=== PATIENT | female | born 1980 | race Caucasian/White ===

== ENCOUNTER 2018-01-13 19:49 | Emergency (ER) | payer MEDICARE ==
[2018-01-13 20:20] VITALS: BP 130/78
--- NOTE | 2018-01-13 21:10 | UC ---
Ear Complaint HPI - HPI Summary HPI Summary: Patient started today to have left ear pain with popping. Denies chills, fever, nasal d/c, cough, sore throat, vomiting or diarrhea - History of Current Complaint Chief Complaint: UCEar Stated Complaint: BILATERAL EARS,FEVER,NAUSEA,DIZZY Time Seen by Provider: 01/13/18 20:55 Hx Obtained From: Patient Hx Last Menstrual Period: 01/06/18 ?: No Onset/Duration: Sudden Onset Severity Initially: Moderate Severity Currently: Moderate Pain Intensity: 6 Aggravating Factors: Nothing Alleviating Factors: Nothing Associated Signs/Symptoms: Positive: Discharge - orange Related History: Seasonal Allergies - Allergies/Home Medications Allergies/Adverse Reactions: Allergies Allergy/AdvReac Type Severity Reaction Status Date / Time codeine Allergy Hives Verified 01/13/18 20:08 ibuprofen Allergy Hives Verified 01/13/18 20:08 Home Medications: Home Medications ALPRAZolam TAB* [Xanax TAB*] 0.5 mg PO TID PRN 01/13/18 [History Confirmed 01/13] Acetaminophen [Extra Strength Non-Aspirin] 1,000 mg PO Q6H PRN 01/13/18 [ History Confirmed 01/13/18] Doxycycline Calcium [Vibramycin] 50 mg PO DAILY 01/13/18 [History Confirmed ] Hydroxychloroquine TAB* [Plaquenil TAB*] 200 mg PO BID 01/13/18 [History Confirmed 01/13/18] Lisdexamfetamine (NF) [Vyvanse (NF)] 70 mg PO DAILY 01/13/18 [History Confirmed 01/13/18] NIFEdipine [Nifedipine] 10 mg PO DAILY 01/13/18 [History Confirmed 01/13/18] PMH/Surg Hx/FS Hx/Imm Hx - Additional Past Medical History Additional PMH: SLE, ADHD, anxiety Previously Healthy: Yes Psychological History: Anxiety - Surgical History Surgical History: Yes Surgery Procedure, Year, and Place: 1994-wisdom teeth extraction. 1998, 2005-- hemorrhoid repair - Family History Known Family History: Positive: Hypertension - Social History Alcohol Use: Weekly Substance Use Type: None Smoking Status (MU): Never Smoked Tobacco Review of Systems Constitutional: Negative ENT: Ear Ache, Nasal Discharge, Sinus Congestion All Other Systems Reviewed And Are Negative: Yes Physical Exam Triage Information Reviewed: Yes Appearance: Well-Appearing, No Pain Distress, Obese Vital Signs: Initial Vital Signs Temp 97.8 F 01/13/18 20:13 Pulse 69 01/13/18 20:13 Resp 16 01/13/18 20:13 BP 130/78 01/13/18 20:13 Pulse Ox 99 01/13/18 20:13 Vital Signs Reviewed: Yes Eyes: Positive: Conjunctiva Clear ENT: Positive: Normal ENT inspection, Hearing grossly normal, Pharynx normal, TMs normal, Other - cerumen flakes b/l Neck: Positive: Supple, Nontender, No Lymphadenopathy Respiratory: Positive: Chest non-tender, Lungs clear, Normal breath sounds Cardiovascular: Positive: RRR, No Murmur, Pulses Normal, Brisk Capillary Refill Abdomen Description: Positive: Nontender Bowel Sounds: Positive: Present Musculoskeletal: Positive: Strength Intact, ROM Intact, No Edema Ear Complaint Course/Dx - Course Course Of Treatment: Eustachian tube dysfunction, history of nasal congestion and sinus pressure. Start Nasal saline and nasacort bid as prescribed, continue fluids and rest. - Differential Dx/Diagnosis Differential Diagnosis/HQI/PQRI: Pharyngitis Provider Diagnoses: Eustachian tube dysfunction Discharge - Sign-Out/Discharge Documenting (check all that apply): Patient Departure All imaging exams completed and their final reports reviewed: No Studies - Discharge Plan Condition: Stable Disposition: HOME Patient Education Materials: Serous Otitis Media (ED), Triamcinolone (Into the nose) Referrals: Wang CORRAL,Bettye Laughlin [Primary Care Provider] - - Billing Disposition and Condition Condition: STABLE Disposition: Home
== END 2018-01-13 21:21 | disposition home or self-care (01) ==
LOC: UCCORT 19:49
DX: H69.82 Other specified disorders of Eustachian tube, left ear (principal); Z88.5 Allergy status to narcotic agent; Z88.6 Allergy status to analgesic agent; F41.9 Anxiety disorder, unspecified; F90.9 Attention-deficit hyperactivity disorder, unspecified type
CPT/HCPCS: 99202; G0463